=== PATIENT | female | born 2000 | race Two or more races ===

== ENCOUNTER 2018-12-11 18:13 | Emergency (ER) | payer OTHER ==
[~2018-12-11] VITALS: Ht 162.6 cm; Wt 86.6 kg
[2018-12-11 18:55] VITALS: BP 106/53
[2018-12-11] MEDS ORDERED: ACETAMINOPHEN/CODEINE#3 (300/30mg) TAB PO ONE (20:15)
[2018-12-11] MEDS ORDERED: BACLOFEN 10 MG TAB PO ONE (20:15)
== END 2018-12-11 22:22 | disposition home or self-care (01) ==
LOC: ER 18:25
DX: S16.1XXA Strain of muscle, fascia and tendon at neck level, initial encounter (principal); Y08.89XA Assault by other specified means, initial encounter; Y93.89 Activity, other specified; Y99.8 Other external cause status; Y92.89 Other specified places as the place of occurrence of the external cause
CPT/HCPCS: 72040; 81002; 81025; 93005